=== PATIENT | female | born 1990 | race Caucasian/White ===

== ENCOUNTER 2017-08-21 10:28 | Emergency (ER) | payer OTHER | END 2017-08-21 12:37 | disposition home or self-care (01) | LOC: M ED 10:28 | DX: S39.002A Unspecified injury of muscle, fascia and tendon of lower back, initial encounter (principal); X50.0XXA Overexertion from strenuous movement or load, initial encounter; Y92.39 Other specified sports and athletic area as the place of occurrence of the external cause; Y93.B3 Activity, free weights | CPT/HCPCS: 99283 ==

== ENCOUNTER 2018-06-22 23:37 | Emergency (ER) | payer OTHER ==
[~2018-06-22] VITALS: Ht 165.1 cm; Wt 70.5 kg
[~2018-06-22 23:37] MED LIST: CYCL10TA PO; IBUP-1022 PO
[2018-06-22] MEDS ORDERED: PYRI1TAB5 PO (23:56)
[2018-06-23 00:41] LABS: URINE PREG TEST NEGATIVE (NEGATIVE)
[2018-06-23 01:00] VITALS: BP 138/78
[2018-06-23] MEDS ORDERED: MACR100C43 PO (01:06)
[2018-06-23] MEDS ORDERED: NITROFURANTOIN (MACROBID) 100 MG CAP PO ONE (01:15)
== END 2018-06-23 01:13 | disposition home or self-care (01) ==
LOC: M ED 23:37
DX: N30.00 Acute cystitis without hematuria (principal); Z87.440 Personal history of urinary (tract) infections; Z79.899 Other long term (current) drug therapy

== ENCOUNTER 2018-10-21 01:25 | Emergency (ER) | payer OTHER ==
[~2018-10-21] VITALS: Ht 165.1 cm; Wt 70.9 kg
[~2018-10-21 01:25] MED LIST changes: +MACR100C43 PO; +PYRI1TAB5 PO
[2018-10-21] MEDS ORDERED: PYRI1TAB5 PO (03:33)
[2018-10-21] MEDS ORDERED: MACR100C43 PO (03:33)
[2018-10-21] MEDS ORDERED: NITROFURANTOIN (MACROBID) 100 MG CAP PO ONE (03:45)
[2018-10-21 03:46] VITALS: BP 112/62
== END 2018-10-21 03:59 | disposition home or self-care (01) ==
LOC: M ED 01:25
DX: R30.0 Dysuria (principal); Z87.440 Personal history of urinary (tract) infections